=== PATIENT | male | born 1945 | race Caucasian/White ===

== ENCOUNTER 2023-01-07 00:35 | Inpatient (IN) | payer MEDICARE ==
[2023-01-07] VITALS (10 sets, daily range): BP systolic 139–204; BP diastolic 76–116
[~2023-01-07] VITALS: Ht 172.7 cm; Wt 104.0 kg
[2023-01-07] MEDS ORDERED: NITROGLYCERIN 0.4 MG SL TABLETS BTL 25'S SL PRN (01:30)
[2023-01-07] MEDS ORDERED: morphine INJ 4 MG/ML 1 ML (VIAL/SYRINGE) IV PRN (01:30)
[2023-01-07] MEDS ORDERED: ONDANSETRON INJECTION 4 MG/2 ML (SDV) IVP PRN (01:30)
[2023-01-07] MEDS ORDERED: hydrALAZINE INJECTION 20 MG/ML VIAL ONE (03:28)
[2023-01-07] MEDS ORDERED: hydrALAZINE INJECTION 20 MG/ML VIAL IV PRN ×2 (03:30→03:45)
[2023-01-07 04:43] LABS: HEMATOCRIT 48 % (40-54); HEMOGLOBIN 16.2 g/dL (13.3-17.7); MEAN CORPUSCULAR HEMOGLOBIN 30 pg (25-34); MEAN CORPUSCULAR HGB CONC 34 g/dL (32-36); MEAN CORPUSCULAR VOLUME 90 fL (80-99); MEAN PLATELET VOLUME 11.1 fL (9.0-12.2); PLATELET COUNT 249 10^3/uL (130-400); WHITE BLOOD COUNT 9.2 10^3/uL (4.3-11.0)
[2023-01-07 04:58] LABS: POTASSIUM 4.7 MMOL/L (3.6-5.0)
[2023-01-07 04:59] LABS: CALCIUM 9.5 MG/DL (8.5-10.1)
[2023-01-07 05:04] LABS: CREATININE SERUM 1.13 MG/DL (0.60-1.30)
--- NOTE | 2023-01-07 08:26 | Consultation-Cardiology ---
HPI-Cardiology Cardiology Consultation Date of Consultation 01/07/23 Date of Admission Time Seen by Provider: 08:24 Indication: Chest pain HPI 77-year-old gentleman with history of hypertension, hyperlipidemia and bronchial asthma, has been having cough and shortness of breath and chest pain described as diffuse achiness in the chest. He was seen in [facility] and transfer red to our hospital. On my evaluation he was laying down comfortably in bed, denied any active chest pain. Troponin level was elevated Home Medications & Allergies Allergies: Coded Allergies: No Allergy Information Available (Unverified , 01/07/23) Home Medication List Reviewed: Yes [id number] Hx Patient Social History Alcohol Use?: Yes Past Medical History Discussed below Family Medical History Significant Family History: Heart Disease Review of Systems-General Review of Systems Constitutional: no symptoms reported, see HPI EENTM: see HPI, no symptoms reported Respiratory: see HPI, cough, dyspnea on exertion; No hemoptysis, No orthopnea, No phlegm; short of breath; No stridor; wheezing; No other Cardiovascular: see HPI, chest pain, edema; No Hx of Intervention, No palpitations, No syncope, No vascular heart diseas, No other Gastrointestinal: no symptoms reported, see HPI Genitourinary: no symptoms reported, see HPI Musculoskeletal: no symptoms reported, see HPI Skin: no symptoms reported, see HPI Psychiatric/Neurological: No Symptoms Reported, See HPI Reviewed Test Results Reviewed Test Results Lab Laboratory Tests Test 01/07/23 04:24 Range/Units White Blood Count 9.2 4.3-11.0 10^3/uL Red Blood Count 5.38 4.30-5.52 10^6/uL Hemoglobin 16.2 13.3-17.7 g/dL Hematocrit 48 40-54 % Mean Corpuscular Volume 90 80-99 fL Mean Corpuscular Hemoglobin 30 25-34 pg Mean Corpuscular Hemoglobin Concent 34 32-36 g/dL Red Cell Distribution Width 13.0 10.0-14.5 % Platelet Count 249 130-400 10^3/uL Mean Platelet Volume 11.1 9.0-12.2 fL Sodium Level 141 135-145 MMOL/L Potassium Level 4.7 3.6-5.0 MMOL/L Chloride Level 110 H 98-107 MMOL/L Carbon Dioxide Level 23 21-32 MMOL/L Anion Gap 8 5-14 MMOL/L Blood Urea Nitrogen 22 H 7-18 MG/DL Creatinine 1.13 0.60-1.30 MG/DL Estimat Glomerular Filtration Rate 67 BUN/Creatinine Ratio 19 Glucose Level 111 H 70-105 MG/DL Calcium Level 9.5 8.5-10.1 MG/DL Troponin I 0.707 *H <0.028 NG/ML Physical Exam Physical Exam Vital Signs Vital Signs - First Documented 01/07/23 01/07/23 01/07/23 01:30 01:39 01:45 Temp 35.8 Pulse 72 Resp 18 B/P (MAP) 139/76 (97) Pulse Ox 96 O2 Delivery Room Air Capillary Refill : Height, Weight, BMI Height: '" Weight: lbs. oz. kg; 34.86 BMI Method: General Appearance: No Apparent Distress, WD/WN Eyes: Bilateral Eye Normal Inspection, Bilateral Eye PERRL, Bilateral Eye EOMI HEENT: PERRL/EOMI, TMs Normal, Normal ENT Inspection, Pharynx Normal, Moist Mucous Membranes Neck: Full Range of Motion, Normal Inspection, Non Tender, Supple, Carotid Bruit Respiratory: Chest Non Tender, Normal Breath Sounds, No Accessory Muscle Use, No Respiratory Distress Cardiovascular: Regular Rate, Rhythm, No Edema, No Gallop, No JVD, No Murmur, Normal Peripheral Pulses Gastrointestinal: Normal Bowel Sounds, No Organomegaly, No Pulsatile Mass, Non Tender, Soft Back: Normal Inspection, No CVA Tenderness, No Vertebral Tenderness Extremity: Normal Capillary Refill, Normal Inspection, Normal Range of Motion, Non Tender, No Calf Tenderness, No Pedal Edema Neurologic/Psychiatric: Alert, Oriented x3, No Motor/Sensory Deficits, Normal Mood/Affect Skin: Normal Color, Warm/Dry Lymphatic: No Adenopathy A/P-Cardiology Admission Diagnosis Chest pain Non-ST elevation myocardial infarction Coronary artery disease Hypertension Assessment/Plan Chest pain, non-ST elevation myocardial infarction Planning to proceed with cardiac catheterization possible PTCA I will evaluate twelve-lead EKG Coronary artery disease, elevated troponin Planning for cardiac catheterization Hypertension, restart home medication monitor blood pressure Hyperlipidemia, monitor lipids Bronchial asthma. Managed by primary care physician J LUIS OCAMPO MD Jan 07, 2023 08:26
[2023-01-07 08:28] LABS: CHOLESTEROL 168 MG/DL (< 200); HDL CHOLESTEROL 51 MG/DL (40-60); TRIGLYCERIDES 74 MG/DL (<150); VLDL CHOLESTEROL 15 MG/DL (5-40)
--- NOTE | 2023-01-07 08:28 | Cardiac Procedure Note-CS/ASA ---
Pre-Procedure Note Pre-Op Procedure Note Date of Available H&P: Jan 07, 2023 Date H&P Reviewed: Jan 07, 2023 Time H&P Reviewed: 08:28 History & Physical: H&P Reviewed, Patient Examed, No changes noted Pre-Operative Diagnosis: NSTMI Moderate Sedation PreProcedure Time 08:28 ASA Score 3 Airway Lungs Heart ASA score ASA 1: a normal healthy patient ASA 2: a patient with a mild systemic disease (mid diabetes, controlled hypertension, obesity ASA 3: a patient with a severe systemic disease that limits activity (angina, COPD, prior Myocardial infarction) ASA 4: a patient with an incapacitating disease that is a constant threat to life (CHF, renal failure) ASA 5: a moribund patient not expected to survive 24 hrs. (ruptured aneurysm) ASA 6: a declared brain- patient whose organs are being harvested. For emergent operations, add the letter E after the classification Mallampati Classification Grade 3 Sedation Plan Analgesia, Amnesia, Plan communicated to team members, Discussed options with patient/fam, Discussed risks with patient/fam The patient is an appropriate candidate to undergo the planned procedure, sedation, and anesthesia. The patient immediately re-assessed prior to indication. J LUIS OCAMPO MD Jan 07, 2023 08:28
[2023-01-07] MEDS ORDERED: NS IV 1000 ML 1,000 ML IV SCH ×2 (08:30→11:30)
[2023-01-07] MEDS ORDERED: ASPIRIN enteric coated 81MG TABLET PO SCH (09:00)
[2023-01-07] MEDS ORDERED: LIDOCAINE 1% INJ 20 ML VIAL ONE (09:59)
[2023-01-07] MEDS ORDERED: HEParin (CATH LAB) 2,000 ML IV ONE (09:59)
[2023-01-07] MEDS ORDERED: NS IV 1000 ML 0 ML ONE (09:59)
[2023-01-07] MEDS ORDERED: MIDAZOLAM INJ 5 MG/5 ML VIAL ONE (10:18)
[2023-01-07] MEDS ORDERED: VERAPAMIL 5 MG/2 ML (CALAN) VIAL IV ONE (10:18)
[2023-01-07] MEDS ORDERED: HEParin 1000 UNIT/ML (10ML VIAL) FOR BOLUS ONE (10:18)
[2023-01-07] MEDS ORDERED: methylPREDNISolone INJ 125 MG VIAL ONE (10:18)
[2023-01-07] MEDS ORDERED: diphenhydrAMINE INJ 50 MG/ML VIAL ONE (10:18)
[2023-01-07] MEDS ORDERED: fentaNYL INJECTION 100 MCG/2 ML VIAL ONE (10:18)
[2023-01-07] MEDS ORDERED: NITRO DRIP 25000 MCG/D5W 250 ML IV ONE (10:19)
[2023-01-07] MEDS ORDERED: CETI10TA17 PO (11:15)
[2023-01-07] MEDS ORDERED: HYDR-3820 PO (11:15)
[2023-01-07] MEDS ORDERED: GABA300C PO (11:15)
[2023-01-07] MEDS ORDERED: FURO20TA4 PO (11:15)
[2023-01-07] MEDS ORDERED: METH4TAB10 PO (11:15)
[2023-01-07] MEDS ORDERED: DICL75TA2 PO (11:15)
[2023-01-07] MEDS ORDERED: ACET-2267 PO (11:15)
[2023-01-07] MEDS ORDERED: ALBU8.5H6 IH (11:15)
[2023-01-07] MEDS ORDERED: AMLO-251 PO (11:15)
[2023-01-07] MEDS ORDERED: LISI40TA9 PO (11:15)
[2023-01-07] MEDS ORDERED: RT-ALBUTEROL SULF 2.5 MG/3 ML PRE-MIX VIAL INH PRN (11:15)
[2023-01-07] MEDS ORDERED: ALPR1TAB7 PO (11:15)
[2023-01-07] MEDS ORDERED: FINA5TAB6 PO (11:15)
[2023-01-07] MEDS ORDERED: SAW PALMETTO PO ×2 (11:15)
--- NOTE | 2023-01-07 11:40 | Cardiac Cath Report ---
Cardiac Cath Report Physician (s)/Rebeamer (s) Physician J LUIS OCAMPO MD Pre-Procedure Diagnosis Pre-Procedure Diagnosis: NSTMI Post-Procedure Note Procedure Start Date: Jan 07, 2023 Name of Procedure: Left heart catheterization IVUS to the LAD IFR to the LAD Aortic arch angiogram Findings/Procedure Note PROCEDURE NOTE: 77-year-old gentleman with hypertension, hyperlipidemia, admitted with non-ST elevation myocardial infarction, cardiac catheterization was advised. After explaining the procedure to the patient, all pros and cons were explained, all questions were answered. The patient signed the consent and then he was placed in the cardiac catheterization laboratory. Groin was prepped in [place] fas hion local anesthesia was used. Sheath placed in the right radial artery, [place] catheter was advanced to the left ventricular cavity, pressure was measured, pullback LV to aorta was done, engage the right and left coronary system, multiple views were obtained Patient had an ostial LAD stenosis 80 to 90% stenosis. Mat left guide was used then I attempted to advance IFR wire without success I used a BMW wire and advanced it through the lesion and parked it distally then used it as a guide for my IFR wire I was able to advance the IFR wire then retracted the BMW wire. IFR at baseline 0.86 which was significant. I attempted to advance IVUS through the LAD, I was unable to advance it through the ostium of the LAD due to the severity of the lesion. Measurement with the IVUS showed 4.0 vessel. Appears to have significant atherosclerotic plaques. Wires were removed catheter was removed to the aortic arch and aortic arch angiogram was done. At the end of the procedure the sheath was removed. Vascular band was used FINDINGS: Hemodynamics LV 117/19, end-diastolic pressure of 19 Aorta 117/81, mean of 97 ANATOMY: Left Main has mild atherosclerotic plaque nonobstructive disease Left Anterior Descending has 80% ostial lesion, IFR 0.86, unable to advance the IVUS through the ostial LAD but appeared to be eccentric lesion and heavily calcified through IVUS Left Circumflex is moderate in size with nonobstructive disease Right Coronary Artery is dominant artery with 95% ostial/proximal lesion LV Gram was not done, pressure was measured Aorta evaluation done with aortic arch angiogram showing normal aortic arch, no dissection or aneurysm, normal origin of the brachiocephalic and left carotid and left subclavian arteries CONCLUSION: 80% ostial LAD lesion with IFR 0.86, appear on IVUS to be eccentric and heavily calcified, could not cross the lesion with a IVUS 95% ostial dominant right coronary artery stenosis Nonobstructive disease in the circumflex artery Mildly elevated left ventricular regular end-diastolic pressure Normal aortic arch and great vessels of the neck DISCUSSION AND RECOMMENDATION HOSPITAL COURSE: Patient was admitted through ICU, monitored overnight, cardiac catheterization carried out showing ostial LAD and ostial right coronary artery stenosis, arrangement to transfer the patient to [place] for bypass surgery Final diagnosis: Non-ST elevation myocardial infarction Coronary artery disease Hypertension Hyperlipidemia Anesthesia Type: Conscious Sedation Estimated blood loss (mL): 20 ML Contrast Amount: 130 ML Total Radiation Dose: 1500 mGy Post-Procedure Diagnosis Post-operative diagnosis: Final diagnosis Non-ST elevation myocardial infarction Coronary artery disease Hypertension Hyperlipidemia J LUIS OCAMPO MD Jan 07, 2023 11:40
[2023-01-07] MEDS ORDERED: meTOprolol INJECTION 5 MG/5 ML VIAL IV NR (12:30)
--- NOTE | 2023-01-07 17:51 | Short Stay Summary-Hospitalist ---
History of Present Illness HPI/Chief Complaint David Dickson is a 77 year old male who was admitted with chest pain. He has also been short of breath. He denies any history of heart disease. He is not a smoker. He has no other issues at this time. Source: patient Exam Limitations: no limitations Date Seen 01/07/23 Time Seen by a Provider: 09:40 Attending Physician No,Local Physician PCP Admitting Physician: Carli Alvares MD Attending Physician: Chilango Hines MD Referring Physician Date of Admission Jan 07, 2023 at 01:22 Home Medications & Allergies Home Medications Reviewed patient Home Medication Reconciliation performed by pharmacy medication reconciliations roof technician and/or nursing. Patients Allergies have been reviewed. Allergies Allergies Coded Allergies No Allergy Information Available (Unverified01/07/23) Past Kjbnybo-Gxktew-Flzwfu Hx Patient Social History Tobacco Use?: No Use of E-Cig and/or Vaping dev: No Substance use?: No Alcohol Use?: Yes Alcohol type: Wine Alcohol Frequency: Daily Pt feels they are or have been: No Current Status Advance Directives: No Communicates: Verbally Primary Language: Samoan Preferred Spoken Language: Samoan Is interpretation needed?: No Sensory deficits: Vision impairment, Hearing impairment Implanted or Applied Medical D: None Family Medical History Heart Disease Review of Systems Constitutional: no symptoms reported Respiratory: short of breath Cardiovascular: chest pain Gastrointestinal: no symptoms reported Physical Exam Physical Exam Vital Signs Vital Signs - First Documented 01/07/23 01/07/23 01/07/23 01/07/23 01:30 01:39 01:45 10:44 Temp 35.8 Pulse 72 Resp 18 B/P (MAP) 139/76 (97) Pulse Ox 96 O2 Delivery Room Air FiO2 21 Capillary Refill : Less Than 3 Seconds Height, Weight, BMI Height: '" Weight: lbs. oz. kg; 34.86 BMI Method: General Appearance: No Apparent Distress, Obese Eyes: Bilateral Eye Normal Inspection, Bilateral Eye PERRL, Bilateral Eye EOMI Neck: Normal Inspection, Supple Respiratory: Lungs Clear, Normal Breath Sounds, No Respiratory Distress Cardiovascular: Regular Rate, Rhythm, No Edema, No Murmur Gastrointestinal: Normal Bowel Sounds, Non Tender, Soft Extremity: Normal Inspection, Non Tender, No Pedal Edema Neurologic/Psychiatric: Alert, No Motor/Sensory Deficits, Normal Mood/Affect Skin: Normal Color, Warm/Dry Results Results/Procedures Labs Laboratory Tests 01/07/23 04:24 Patient resulted labs reviewed. Short Stay Diagnosis Discharge Diagnosis-Short Stay Admission Diagnosis NSTEMI Final Discharge Diagnosis Multivessel CAD Conclusion Plan NSTEMI Multivessel CAD HTN HLD Obesity Left heart cath with ostial LAD and ostial RCA stenosis Transferred to [place] for CABG evaluation Diagnosis/Problems Diagnosis/Problems (1) NSTEMI (non-ST elevated myocardial infarction) Status: Acute (2) Multiple vessel coronary artery disease Status: Acute (3) HTN (hypertension) Status: Chronic (4) HLD (hyperlipidemia) Status: Chronic (5) Obesity Status: Chronic CHILANGO HINES MD Jan 07, 2023 17:51
== END 2023-01-07 13:15 | disposition short-term general hospital (02) | DRG 282 ==
LOC: ICU 01:22
PROVIDERS: ADMIT Family Medicine; ATTEND Internal Medicine
PROC: 4A023N7 Measurement of Cardiac Sampling and Pressure, Left Heart, Percutaneous Approach (ICD-10-PCS; principal; 2023-01-07)
PROC: B2111ZZ Fluoroscopy of Multiple Coronary Arteries using Low Osmolar Contrast (ICD-10-PCS; 2023-01-07)
PROC: 4A033BC Measurement of Arterial Pressure, Coronary, Percutaneous Approach (ICD-10-PCS; 2023-01-07)
PROC: B3101ZZ Fluoroscopy of Thoracic Aorta using Low Osmolar Contrast (ICD-10-PCS; 2023-01-07)
DX: I21.4 Non-ST elevation (NSTEMI) myocardial infarction (principal); I25.10 Atherosclerotic heart disease of native coronary artery without angina pectoris; I10 Essential (primary) hypertension; E78.5 Hyperlipidemia, unspecified; E66.9 Obesity, unspecified; Z68.34 Body mass index [BMI] 34.0-34.9, adult
CPT/HCPCS: 36221; 36415; 80048; 80061; 84484; 85027; 93005; 93306; 93458

== ENCOUNTER → 2023-02-14 | Outpatient (CLI) | payer MEDICARE ==
[~2023-02-14] MED LIST: ACET-2267 PO; ALBU8.5H6 IH; ALPR1TAB7 PO; AMLO-251 PO; CETI10TA17 PO; DICL75TA2 PO; FINA5TAB6 PO; FURO20TA4 PO; GABA300C PO; HYDR-3820 PO; LISI40TA9 PO; METH4TAB10 PO; SAW PALMETTO PO
[2023-02-14 10:47] LABS: HEMATOCRIT 45 % (40-54); HEMOGLOBIN 14.2 g/dL (13.3-17.7); MEAN CORPUSCULAR HEMOGLOBIN 30 pg (25-34); MEAN CORPUSCULAR HGB CONC 32 g/dL (32-36); MEAN CORPUSCULAR VOLUME 94 fL (80-99); MEAN PLATELET VOLUME 10.8 fL (9.0-12.2); PLATELET COUNT 301 10^3/uL (130-400); WHITE BLOOD COUNT 6.3 10^3/uL (4.3-11.0)
[2023-02-14 11:06] LABS: ALBUMIN 4.4 GM/DL (3.2-4.5); BILIRUBIN,TOTAL 0.5 MG/DL (0.1-1.0); CALCIUM 9.5 MG/DL (8.5-10.1); CREATININE SERUM 1.35 MG/DL (0.60-1.30); POTASSIUM 4.9 MMOL/L (3.6-5.0); TOTAL PROTEIN 7.4 GM/DL (6.4-8.2)
== END ==
LOC: LAB 10:39
PROVIDERS: ATTEND Internal Medicine Cardiovascular Disease
DX: I10 Essential (primary) hypertension (principal); I25.10 Atherosclerotic heart disease of native coronary artery without angina pectoris; I48.0 Paroxysmal atrial fibrillation; E78.01 Familial hypercholesterolemia
CPT/HCPCS: 36415; 80053; 80061; 84443; 85027